=== PATIENT | male | born 1985 | race American Indian/Alaskan Native ===

== ENCOUNTER 2020-06-23 04:01 | Emergency (ER) | payer MEDICAID, OTHER ==
[2020-06-23] MEDS ORDERED: MVI, Adult with Vitamin K 10 ML, Folic Acid 1 MG, Thiamine 100 MG in Lactated Ringers 1... IV ONE ×4 (04:13)
[2020-06-23] MEDS ORDERED: LORazepam 2 MG/ML SDV IVPUSH PRN ×2 (04:20→06:07)
[2020-06-23 04:46] LABS: ANION GAP 12.1 mEq/L (7-13); CHLORIDE,CL 102 mmol/L (98-107); SODIUM,NA 141 mmol/L (136-145)
[2020-06-23] MEDS ORDERED: Potassium Chloride 10 MEQ in Premix Bag 1 BAG IV ONE (05:25)
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
--- NOTE | 2020-06-23 06:54 | CT ---
PROCEDURE INFORMATION: Exam: CT Head Without Contrast Exam date and time: 06/23/2020 6:33 AM Age: 34 years old Clinical indication: Altered mental status/memory loss TECHNIQUE: Imaging protocol: Computed tomography of the head without contrast. Radiation optimization: All CT scans at this facility use at least one of these dose optimization techniques: automated exposure control; mA and/or kV adjustment per patient size (includes targeted exams where dose is matched to clinical indication); or iterative reconstruction. COMPARISON: No relevant prior studies available. FINDINGS: Limitations: Motion artifact does moderately limit the sensitivity of this examination. Eccentric positioning within the gantry. Brain: Questionable decreased attenuation within the left occipital lobe. No acute intra-axial or extra-axial hemorrhage appreciated. Ventricles: Normal. No ventriculomegaly. Bones/joints: Unremarkable. No acute fracture. Sinuses: Visualized sinuses are unremarkable. No fluid levels. Mastoid air cells: Visualized mastoid air cells are well aerated. Soft tissues: Unremarkable. IMPRESSION: 1. Questionable decreased attenuation within the left occipital lobe. 2. No acute intra-axial or extra-axial hemorrhage appreciated. 3. Recommend repeat exam when patient's condition dictates to confirm or deny the left occipital lobe abnormality
== END 2020-06-23 12:20 | disposition left against medical advice (07) ==
LOC: DL.ED 04:01
DX: S00.81XA Abrasion of other part of head, initial encounter (principal); F15.10 Other stimulant abuse, uncomplicated; Z20.828 Contact with and (suspected) exposure to other viral communicable diseases; F25.9 Schizoaffective disorder, unspecified; Z79.899 Other long term (current) drug therapy; X58.XXXA Exposure to other specified factors, initial encounter
CPT/HCPCS: 36415; 70450; 80053; 80305; 80307; 81001; 82150; 83690; 85025; 87635; 96365; 96367; 96375; 96376; 99285; J2060; J3411; J3480; J7120; 99283; J3490; U0002